=== PATIENT | male | born 1930 | race Caucasian/White ===

== ENCOUNTER 2016-12-27 18:49 | Emergency (ER) | payer OTHER ==
[~2016-12-27] VITALS: Ht 182.9 cm; Wt 77.1 kg
[2016-12-27] MEDS ORDERED: LEVE500T9 PO (19:04)
--- NOTE | 2016-12-27 19:05 | NUR ---
at bedside doing the MSE.
[2016-12-27] MEDS ORDERED: IV NORMAL SALINE 1000 ML BAG IV ONE (19:15)
--- NOTE | 2016-12-27 19:20 | NUR ---
Received report from BASIA Kapadia. Assumed care of pt at this time. Pt resting in position of comfort for self. Remains post-ictal. Dr. Alexander at bedside. Pt placed on 2 L NC to maintain O2 sats > 95%. Family at bedside.
[2016-12-27 19:39] LABS: BASOPHILS # (AUTO) 0.1 K/uL (0.0-8.0); BASOPHILS % (AUTO) 1.2 % (0.0-2.0); EOSINOPHILS # (AUTO) 0.4 K/uL (0.0-0.7); EOSINOPHILS % (AUTO) 6.6 % (0.0-7.0); HEMATOCRIT 42.5 % (40-50); HEMOGLOBIN 13.8 G/DL (14.0-18.0); LYMPHOCYTES # (AUTO) 1.7 K/UL (0.8-4.8); LYMPHOCYTES % (AUTO) 27.5 % (20.5-51.5); MEAN CORPUSCULAR HEMOGLOBIN 25.5 UUG (27.0-31.0); MEAN CORPUSCULAR HGB CONC 33 g/dL (32.0-37.0); MEAN CORPUSCULAR VOLUME 78.3 FL (82.0-92.0); MONOCYTES # (AUTO) 0.6 K/UL (0.1-1.30); MONOCYTES % (AUTO) 9.7 % (0.0-11.0); NEUTROPHILS # (AUTO) 3.4 K/UL (1.8-8.9); PLATELET COUNT (AUTO) 219 K/UL (150-450); RED BLOOD CELL COUNT(AUTO) 5.43 MIL/UL (4.7-6.1); WHITE BLOOD COUNT (AUTO) 6.2 K/UL (4.0-11.2)
[2016-12-27 19:44] LABS: CARBON DIOXIDE 26 mmol/L (21-32); CHLORIDE 106 mmol/L (98-107); CREATININE 1.1 mg/dL (0.6-1.3); GLUCOSE 103 mg/dL (74-106); POTASSIUM 4.1 mmol/L (3.5-5.1); UREA NITROGEN, BLOOD 19 mg/dL (7-18)
[2016-12-27] MEDS ORDERED: NEOMY/BACITRA/POLYMYXIN B OINT UD PACKET TP ONE ×2 (19:45→19:53)
[2016-12-27 19:50] LABS: ALANINE AMINOTRANSFERASE 19 U/L (16-63); ALKALINE PHOSPHATASE 63 U/L (50-136); ASPARTATE AMINOTRANSFERASE 20 U/L (15-37); BILIRUBIN,DIRECT 0.1 mg/dL (0.0-0.2); BILIRUBIN,TOTAL 0.4 mg/dL (0.2-1.0); TOTAL PROTEIN, SERUM 6.4 g/dL (6.4-8.2)
--- NOTE | 2016-12-27 20:05 | NUR ---
Report given to BASIA Jose. I relinquish care of pt at this time
--- NOTE | 2016-12-27 20:17 | NUR ---
Pt is noted alert, responsive with report received from the off going nurse that pt was brought in by [facility] 83 with pt at bedside c/o post witness seizure per report PT had a Tonice Clonic Seizure Lasting Approx 5mins with a history Seizures and his on Keppra . His crae continue continue with Swallow Evauations done and pt passed. His care continue as he is back from CT as awaits test results.
[2016-12-27 20:51] LABS: *BILIRUBIN,URIN NEGATIVE (NEGATIVE); *BLOOD, URINE NEGATIVE (NEGATIVE); *CLARITY,URINE CLEAR (CLEAR); *COLOR,URINE YELLOW (YELLOW); *KETONES,URINE NEGATIVE (NEGATIVE); *PROTEIN,URINE NEGATIVE (NEGATIVE); LEUKOCYTE ESTERASE ,URINE NEGATIVE (NEGATIVE); NITRITE, URINE NEGATIVE (NEGATIVE); UGLUCOSE NEGATIVE (NEGATIVE)
[2016-12-27 21:01] LABS: MUCUS,URINE FEW /LPF (0-FEW); WBC,URINE 0-3 /HPF (0-3)
--- NOTE | 2016-12-27 21:10 | NUR ---
Pt is noted alert, responsive as he is 94% on Room Air . His care continue as pt is back on 02 2liters Nasal cannula . His care continue while monitor
--- NOTE | 2016-12-27 21:13 | NUR ---
Pt remain alert, resposnive with call light and fall and Sizure precautions in place as he been monitor closely as his care continue.
--- NOTE | 2016-12-27 22:13 | NUR ---
Pt remain alert, responsive as he will be transfered ro [facility] under the care off and report is given to Nurse at [facility] by calling at [phone] and pickup time for pt should be [id number]. His care continue while monitor with fall and Seizure precautions as awaits Pickup with family at bedside.
--- NOTE | 2016-12-27 22:50 | NUR ---
Pt is noted pickup off the unit to [facility] as he remain stable.
== END 2016-12-27 22:40 | disposition short-term general hospital (02) ==
LOC: ER 18:50
DX: G40.909 Epilepsy, unspecified, not intractable, without status epilepticus (principal)
CPT/HCPCS: 36415; 70450; 71010; 72125; 80048; 80076; 81001; 83880; 84484; 85025; 85730; 93005; 96360; 99285; A4663; J7030; 70030-TC

== ENCOUNTER 2018-10-10 18:32 | Inpatient (IN) | payer OTHER ==
[~2018-10-10] VITALS: Ht 177.8 cm; Wt 78.9 kg
[~2018-10-10 18:32] MED LIST: LEVE500T9 PO
--- NOTE | 2018-10-10 18:50 | NUR ---
Patient is AOx1 (person only), so far nonverbal upon arrival to ED. Reactive to light touch, +grimacing. came in via gurney BIB ambulance. No cardiovascular distress noted. Rate/rhythm regular. No CP. No respiratory distress noted. Respirations even , unlabored, symmetrical chest rise. No adventitious sounds noted. Chief complaint: Pt had witnessed seizure at home at 1800. blood glucose per EMT:115. NKDA, and endorsed to have bipedal edema and combative. Pt is nonverbal but reactive to light touch and calling name. Also, endorsed by daughter, Pt had a seizure last Saturday and fell on his Left mid back along with Left shoulder, c/o pain to the site and discomfort upon ROM of Left Shoulder. Denies Fever/Chills. No recent travel. +seizure and has been taking Kepra but stopped taking for 2months and has not been seen by MD since then/NKDA. - ETOH / -recreational drug use/ nonsmoker. LBM- yesterday. Continent of bowel and bladder function. SAFETY Patient in bed, bed in lowest position. Siderails up x 2 with padding for seizure prec. Call light within reach. Will continue to monitor accordingly
[2018-10-10] MEDS ORDERED: LEVETIRACETAM IV 500 MG in IV DEXTROSE 5% 100 ML IV ONE (19:00)
[2018-10-10] MEDS ORDERED: IV NORMAL SALINE 1000 ML BAG IV ONE (19:00)
[2018-10-10 19:37] LABS: BASOPHILS # (AUTO) 0.1 K/uL (0.0-8.0); BASOPHILS % (AUTO) 0.6 % (0.0-2.0); EOSINOPHILS # (AUTO) 0.2 K/uL (0.0-0.7); EOSINOPHILS % (AUTO) 1.8 % (0.0-7.0); HEMATOCRIT 39.2 % (36.7-47.1); HEMOGLOBIN 12.9 g/dL (12.5-16.3); LYMPHOCYTES # (AUTO) 1.7 K/uL (20.0-40.0); LYMPHOCYTES % (AUTO) 16.7 % (20.5-51.5); MEAN CORPUSCULAR HEMOGLOBIN 24.6 uug (23.8-33.4); MEAN CORPUSCULAR HGB CONC 33 g/dL (32.5-36.3); MEAN CORPUSCULAR VOLUME 74.6 fL (73.0-96.2); MONOCYTES # (AUTO) 0.7 K/uL (2.0-10.0); MONOCYTES % (AUTO) 6.9 % (0.0-11.0); NEUTROPHILS # (AUTO) 7.6 K/uL (1.8-8.9); PLATELET COUNT (AUTO) 210 K/uL (152-348); RED BLOOD CELL COUNT(AUTO) 5.25 MIL/uL (4.06-5.63); WHITE BLOOD COUNT (AUTO) 10.3 K/uL (3.6-10.2)
[2018-10-10 19:41] LABS: CARBON DIOXIDE 25 mmol/L (21-32); CHLORIDE 108 mmol/L (98-107); CREATININE 1.5 mg/dL (0.6-1.3); GLUCOSE 112 mg/dL (74-106); POTASSIUM 4.2 mmol/L (3.5-5.1); UREA NITROGEN, BLOOD 17 mg/dL (7-18)
[2018-10-10 19:48] LABS: ALANINE AMINOTRANSFERASE 11 U/L (16-63); ALKALINE PHOSPHATASE 76 U/L (50-136); ASPARTATE AMINOTRANSFERASE 17 U/L (15-37); BILIRUBIN,DIRECT 0.1 mg/dL (0.0-0.2); BILIRUBIN,TOTAL 0.4 mg/dL (0.2-1.0); TOTAL PROTEIN, SERUM 6.1 g/dL (6.4-8.2)
--- NOTE | 2018-10-10 20:00 | NUR ---
Pt back in room at this time. Pt is alert and speaking in complete sentences at this time, reoriented to reality. Unable to provide urine at this time, will reattempt.
[2018-10-10 20:08] LABS: THYROID STIMULATING HORMONE 3.359 mIU/mL (0.358-3.740)
--- NOTE | 2018-10-10 20:55 | NUR ---
Spoke with SHAY Meyers regarding possible transfer of patient. Pt to be admitted to a telemetry unit per Dr. Alexander. Awaiting update at this time.
--- NOTE | 2018-10-10 21:15 | NUR ---
Dr. Alexander speaking with Dr. Lucero of [facility].
[2018-10-10] MEDS ORDERED: IV NORMAL SALINE 250 ML IV ONE (22:03)
[2018-10-10] MEDS ORDERED: IOHEXOL 350 100 ML INFUS..BTL ONE (22:03)
[2018-10-10] MEDS ORDERED: SWABABLE VALVE TRANSFER SET EA MC ONE (22:03)
[2018-10-10 22:08] LABS: *BILIRUBIN,URIN NEGATIVE (NEGATIVE); *BLOOD, URINE NEGATIVE (NEGATIVE); *CLARITY,URINE CLEAR (CLEAR); *COLOR,URINE YELLOW (YELLOW); *KETONES,URINE NEGATIVE (NEGATIVE); *UROBILINOGEN,URINE 0.2 E.U./dl (NORMAL); LEUKOCYTE ESTERASE ,URINE NEGATIVE (NEGATIVE); NITRITE, URINE NEGATIVE (NEGATIVE); PH,URINE 6.5 (5.0-8.0); UGLUCOSE NEGATIVE (NEGATIVE)
[2018-10-10 22:26] LABS: WBC,URINE 0-3 /HPF (0-3)
[2018-10-10 22:27] LABS: MUCUS,URINE MODERATE /LPF (0-FEW)
--- NOTE | 2018-10-10 23:10 | NUR ---
Called [facility] for Dr. Lucero for CTA results, awaiting call back at this time.
--- NOTE | 2018-10-10 23:41 | NUR ---
Dr. Syed on phone with Dr. Alexander
[2018-10-11] VITALS (13 sets, daily range): BP systolic 118–153; BP diastolic 63–91
--- NOTE | 2018-10-11 01:00 | NUR ---
Report given to receiving RN. MRSA swab done. Patient and family made aware of plan of care.
[2018-10-11] MEDS ORDERED: ACETAMINOPHEN 325 MG TABLET PO PRN (01:15)
[2018-10-11] MEDS ORDERED: ONDANSETRON 4 MG/2 ML VIAL IV PRN (01:15)
--- NOTE | 2018-10-11 01:21 | NUR ---
Dr. Hogan at bedside at this time.
--- NOTE | 2018-10-11 01:22 | NUR ---
Pt. admitted to CCU , under care of Dr. Hogan Belongs List completed
--- NOTE | 2018-10-11 01:45 | NUR ---
Rec'd from ER. & daughter with patient. No Heparin / chronic GI bleed / MD. Fades in & out of mentation. No evidence of distress.
[2018-10-11] MEDS ORDERED: LORAZEPAM 2 MG/1 ML VIAL IV PRN (02:15)
[2018-10-11] MEDS ORDERED: LEVETIRACETAM IV 500 MG in IV DEXTROSE 5% 100 ML IV SCH (09:00)
[2018-10-11] MEDS ORDERED: PANTOPRAZOLE SODIUM 40 MG VIAL IV SCH (09:00)
--- NOTE | 2018-10-11 09:00 | NUR ---
seen by dr Valdez. . orders received Addendum: 10/11/18 at 1521 by ISAMAR GODDARD RN Amended: Claire added. Addendum: 10/11/18 at 1524 by ISAMAR GODDARD RN Amended: Claire don.
--- NOTE | 2018-10-11 13:00 | NUR ---
seen by Sami.. patient refused further procedures, test and treatments. will sign AMA Addendum: 10/11/18 at 1524 by ISAMAR GODDARD RN Amended: Links added.
--- NOTE | 2018-10-11 14:54 | NUR ---
patient uncooperative and pulled his IV out right hand, wrist restraints applied Addendum: 10/11/18 at 1503 by ISAMAR GODDARD RN Amended: Links added.
[2018-10-11] MEDS ORDERED: QUETIAPINE FUMARATE 25 MG TABLET PO ONE (15:15)
--- NOTE | 2018-10-11 15:52 | NUR ---
unable to take po seroquel. Dr Ureña called back for some IV orders. order received for Haldol 2,[address] Aj for patient behavior, uncooperative. team came and was able to keep pat in bed ibis ferguson for urinary incontinence and bowel incontinenece Addendum: 10/11/18 at 1552 by ISAMAR GODDARD RN Amended: Links added.
[2018-10-11] MEDS ORDERED: HALOPERIDOL LACTATE 5 MG/1 ML VIAL IV ONE (16:00)
[2018-10-11] MEDS ORDERED: LEVETIRACETAM 500 MG TABLET PO SCH (17:00)
--- NOTE | 2018-10-11 17:17 | NUR ---
discharged home AMA accompanied by and stepdaughter. exit care given Addendum: 10/11/18 at 1718 by ISAMAR GODDARD RN Amended: Links added.
== END 2018-10-11 17:20 | disposition left against medical advice (07) | DRG 100 ==
LOC: ER 18:33 → CCU 10-11 00:38
PROVIDERS: ADMIT Student in an Organized Health Care Education/Training Program; ATTEND Student in an Organized Health Care Education/Training Program
DX: G40.409 Other generalized epilepsy and epileptic syndromes, not intractable, without status epilepticus (principal); I26.99 Other pulmonary embolism without acute cor pulmonale; M48.54XA Collapsed vertebra, not elsewhere classified, thoracic region, initial encounter for fracture; E44.0 Moderate protein-calorie malnutrition; K92.2 Gastrointestinal hemorrhage, unspecified; N17.9 Acute kidney failure, unspecified; I82.442 Acute embolism and thrombosis of left tibial vein; J98.11 Atelectasis; J90 Pleural effusion, not elsewhere classified; K92.1 Melena; Z91.14 Patient's other noncompliance with medication regimen; Z86.73 Personal history of transient ischemic attack (TIA), and cerebral infarction without residual deficits; D72.829 Elevated white blood cell count, unspecified; M81.0 Age-related osteoporosis without current pathological fracture; K57.90 Diverticulosis of intestine, part unspecified, without perforation or abscess without bleeding; I51.7 Cardiomegaly; Z91.19 Patient's noncompliance with other medical treatment and regimen; M19.012 Primary osteoarthritis, left shoulder
CPT/HCPCS: 36415; 70030-TC; 70450; 71045; 71275; 72072; 72100; 72125; 73030; 84443; 85025; 85730; 87040; 87086; 93005; 93307; A4663; C9113; G0378; J1630; J1953; J7030; J7050; J7060; Q9967